=== PATIENT | female | born 1980 | race Two or more races ===

== ENCOUNTER 2019-04-08 19:28 | Emergency (ER) | payer OTHER ==
[~2019-04-08] VITALS: Ht 175.3 cm; Wt 68.2 kg
[2019-04-08 19:31] VITALS: BP 117/80
--- NOTE | 2019-04-08 19:53 | NUR ---
pt to ct now
[2019-04-08 20:06] LABS: MICROSCOPIC NOT IND
[2019-04-08 20:12] LABS: CULTURE INDICATED? NO
[2019-04-08 20:13] LABS: BASOPHILS # (AUTO) 0.03 x10^3/uL (0-0.1); BASOPHILS % (AUTO) 0 % (0-1); EOSINOPHILS # (AUTO) 0.12 x10^3/uL (0-0.4); EOSINOPHILS % (AUTO) 2 % (1-7); LYMPHOCYTES # (AUTO) 2.26 x10^3/uL (1-3.4); LYMPHOCYTES % (AUTO) 28 % (22-44); MD NO; MEAN CORPUSCULAR HEMOGLOBIN 29.3 pg (27.0-34.8); MEAN CORPUSCULAR HGB CONC 32.6 g/dL (32.4-35.8); MEAN CORPUSCULAR VOLUME 89.9 fL (80-100); MEAN PLATELET VOLUME 9.2 fL (7.4-10.4); MONOCYTES # (AUTO) 0.54 x10^3/uL (0.2-0.8); MONOCYTES % (AUTO) 7 % (2-9); NEUTROPHILS # (AUTO) 5.03 x10^3/uL (1.8-6.8); NEUTROPHILS % (AUTO) 63 % (42-75); PLATELET COUNT 317 x10^3/uL (130-400); RED BLOOD COUNT 4.69 x10^6/uL (3.82-5.3); RED CELL DISTRIBUTION WIDTH 13.1 % (9.6-15.2)
[2019-04-08 20:21] LABS: ALBUMIN 4.1 g/dL (3.4-5.0); ANION GAP 8 mmol/L (5-15); CALCIUM 8.9 mg/dL (8.5-10.1); CHLORIDE 107 mmol/L (98-107)
[2019-04-08 20:25] LABS: ALANINE AMINOTRANSFERASE 23 U/L (12-78); ALKALINE PHOSPHATASE 62 U/L (45-117); BILIRUBIN,TOTAL 0.3 mg/dL (0.2-1.0); CREATININE 0.77 mg/dL (0.55-1.02); TOTAL PROTEIN 7.5 g/dL (6.4-8.2)
[2019-04-08] MEDS ORDERED: IBUPROFEN 600 MG TABLET ONE (20:46)
[2019-04-08] MEDS ORDERED: IBUPROFEN 600 MG TABLET PO ONE (21:00)
== END 2019-04-08 21:30 | disposition home or self-care (01) ==
LOC: ED 21:05
DX: R51 Headache (principal); E86.0 Dehydration
CPT/HCPCS: 36415; 70450; 80053; 81003; 81025; 85025; 93005; 99284

== ENCOUNTER 2019-12-31 14:22 | Emergency (ER) | payer OTHER ==
[~2019-12-31] VITALS: Ht 175.3 cm; Wt 72.0 kg
[2019-12-31 14:27] VITALS: BP 109/71
[2019-12-31] MEDS ORDERED: IBUPROFEN 200 MG TABLET PO ONE (14:30)
[2019-12-31] MEDS ORDERED: IBUPROFEN 200 MG TABLET ONE (14:52)
[2019-12-31 14:56] LABS: RAPID INFLUENZA A Negative (Negative); RAPID INFLUENZA B Negative (Negative)
== END 2019-12-31 15:19 | disposition home or self-care (01) ==
LOC: ED 14:23
DX: J02.8 Acute pharyngitis due to other specified organisms (principal); B97.89 Other viral agents as the cause of diseases classified elsewhere; H66.002 Acute suppurative otitis media without spontaneous rupture of ear drum, left ear
CPT/HCPCS: 87081; 87400; 87880; 99283

== ENCOUNTER 2020-01-20 18:13 | Emergency (ER) | payer OTHER ==
[~2020-01-20] VITALS: Ht 175.3 cm; Wt 70.0 kg
--- NOTE | 2020-01-20 18:37 | NUR ---
PT TO ROOM 26 PER REZA. PT IS AN EMPLOYEE HERE, AND WANTS TO BE SCREENED FOR THE COVID 19 VIRUS. PT STATES "I HAVE A SORE THROAT AND A LOW GRADE FEVER. 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 MY DAUGHTER IS SHOWING THE SAME SYMPTOMS, AND WE HAVEN'T EVEN BEEN TOGETHER". PT LOOKS AND APPEARS WELL. SMALL REDNESS TO THROAT. ORDERS PLACED FOR XRAY AND LABS, DID NOT THINK SHE HAS COVID AND DOES NOT RECCOMEND THE TESTING FOR THE VIRUS. PT WANTS TO BE TESTED. WILL CONTEMPLATE ASKING FOR THE TEST AFTER HER LAB AND XRAY ARE DONE.
--- NOTE | 2020-01-20 18:52 | NUR ---
XRAY AND LAB DONE. PT RESTING WITH MASK ON.
[2020-01-20 18:55] LABS: BASOPHILS # (AUTO) 0.04 x10^3/uL (0-0.1); BASOPHILS % (AUTO) 0 % (0-1); EOSINOPHILS # (AUTO) 0.27 x10^3/uL (0-0.4); EOSINOPHILS % (AUTO) 3 % (1-7); LYMPHOCYTES # (AUTO) 2.67 x10^3/uL (1-3.4); LYMPHOCYTES % (AUTO) 29 % (22-44); MD NO; MEAN CORPUSCULAR HEMOGLOBIN 29.7 pg (27.0-34.8); MEAN CORPUSCULAR HGB CONC 33.6 g/dL (32.4-35.8); MEAN CORPUSCULAR VOLUME 88.3 fL (80-100); MEAN PLATELET VOLUME 9.6 fL (7.4-10.4); MONOCYTES # (AUTO) 0.62 x10^3/uL (0.2-0.8); MONOCYTES % (AUTO) 7 % (2-9); NEUTROPHILS # (AUTO) 5.77 x10^3/uL (1.8-6.8); NEUTROPHILS % (AUTO) 62 % (42-75); PLATELET COUNT 329 x10^3/uL (130-400); RED BLOOD COUNT 4.62 x10^6/uL (3.82-5.3); RED CELL DISTRIBUTION WIDTH 12.9 % (9.6-15.2)
[2020-01-20] MEDS ORDERED: ONDANSETRON ODT 4 MG PO ONE (19:00)
[2020-01-20 19:01] LABS: ANION GAP 5 mmol/L (5-15); CALCIUM 8.5 mg/dL (8.5-10.1); CHLORIDE 109 mmol/L (98-107)
[2020-01-20] MEDS ORDERED: ONDANSETRON ODT 4 MG ONE (19:09)
--- NOTE | 2020-01-20 19:15 | NUR ---
TASK RN: PT MEDICATED PER JAN FOR NAUSEA. LARISSAN. PT CONTINUES TO REMAIN UNSURE ABOUT TESTING FOR RESP VIRUS AT THIS TIME. TO BE UPDATED
--- NOTE | 2020-01-20 20:08 | NUR ---
DR. WILLIAM IN TO DISCUSS ALL FINDINGS WITH PATIENT. PT DECIDES TO NOT HAVE THE RAPID INFLUENZA SWAB PERFORMED. PT WILL BE DISCHARGED. RN AWAITING DISCHARGE INSTRUCTIONS FROM PATIENT.
[2020-01-20 20:17] VITALS: BP 112/72
== END 2020-01-20 20:20 | disposition home or self-care (01) ==
LOC: ED 19:01
DX: J02.8 Acute pharyngitis due to other specified organisms (principal); B97.89 Other viral agents as the cause of diseases classified elsewhere
CPT/HCPCS: 36415; 71045; 80048; 82040; 84703; 85025; 99284; Q0162

== ENCOUNTER 2020-03-25 14:15 | Emergency (ER) | payer OTHER ==
[~2020-03-25] VITALS: Ht 175.3 cm; Wt 73.0 kg
[2020-03-25 14:18] VITALS: BP 121/68
[2020-03-25] MEDS ORDERED: METHOCARBAMOL 750 MG TABLET ONE (14:53)
[2020-03-25] MEDS ORDERED: KETOROLAC 30 MG/1 ML ONE (14:53)
[2020-03-25] MEDS ORDERED: METHOCARBAMOL 750 MG TABLET PO ONE (15:00)
[2020-03-25] MEDS ORDERED: KETOROLAC 30 MG/1 ML IM ONE (15:00)
--- NOTE | 2020-03-25 15:21 | NUR ---
UPON RETURN FROM XRAY MEDICATED NOTED ON JAN FOR BACK PAIN
--- NOTE | 2020-03-25 15:54 | NUR ---
PT STATES LOW BACK PAIN IMPROVED SINCE MEDICATED, DOES NOT FEEL TIGHT.
== END 2020-03-25 16:06 | disposition home or self-care (01) ==
LOC: ED 15:59
DX: S39.012A Strain of muscle, fascia and tendon of lower back, initial encounter (principal); M54.6 Pain in thoracic spine; X58.XXXA Exposure to other specified factors, initial encounter; Y93.89 Activity, other specified; Y92.89 Other specified places as the place of occurrence of the external cause; Y99.8 Other external cause status
CPT/HCPCS: 72110; 96372; 99283; J1885

== ENCOUNTER → 2020-04-25 | Outpatient (CLI) | payer OTHER | END | disposition home or self-care (01) | LOC: RAD 14:04 | PROVIDERS: ATTEND Family Medicine | DX: M47.27 Other spondylosis with radiculopathy, lumbosacral region (principal); M25.78 Osteophyte, vertebrae; M48.07 Spinal stenosis, lumbosacral region | CPT/HCPCS: 72148 ==